=== PATIENT | male | born 1955 | race Hispanic/Latino ===

== ENCOUNTER 2024-02-22 06:42 | Day surgery (SDC) | payer MEDICARE, OTHER ==
[2024-02-18 10:57] VITALS: BP 172/85; PULSE 58; RESP 18
[2024-02-18 11:16] LABS: CREATININE 1.2 mg/dL (0.5-1.3); POTASSIUM 4.4 mmol/L (3.5-5.1)
[2024-02-18 11:36] LABS: BASOPHILS # (AUTO) 0.04 K/uL (0.00-0.20); BASOPHILS % (AUTO) 0.5 % (0.0-5.0); EOSINOPHILS # (AUTO) 0.21 K/uL (0.00-0.70); EOSINOPHILS % (AUTO) 2.5 % (0.0-8.0); HEMATOCRIT 45.9 % (42-54); IMMATURE GRANULOCYTE ABSOLUTE 0.03 K/uL (0-1); LYMPHOCYTES # (AUTO) 2.5 K/uL (1.0-4.8); LYMPHOCYTES % (AUTO) 28.8 % (21.0-51.0); MEAN CORPUSCULAR HEMOGLOBIN 30.8 pg (27.0-33.0); MEAN CORPUSCULAR VOLUME 90.5 fL (79-99); MONOCYTES # (AUTO) 0.7 K/uL (0.1-1.0); MONOCYTES % (AUTO) 7.9 % (3.0-13.0); NEUTROPHILS # (AUTO) 5.1 K/uL (1.8-7.7); NEUTROPHILS % (AUTO) 59.9 % (40.0-77.0); PLATELET COUNT (AUTO) 302 K/uL (130-400); RED BLOOD CELL COUNT(AUTO) 5.07 MIL/uL (4.50-6.20); RED CELL DISTRIBUTION WIDTH 13.3 % (11.0-15.5); WHITE BLOOD COUNT (AUTO) 8.5 K/uL (4.8-10.8)
[2024-02-22] VITALS (17 sets, daily range): BP systolic 127–163; BP diastolic 64–94; PULSE 51–73; RESP 12–18
[~2024-02-22] VITALS: Ht 172.7 cm; Wt 79.1 kg
[2024-02-22] MEDS: LACTATED RINGERS 1000ML 1,000 ML IV ONE (07:26)
[2024-02-22] MEDS: CEFAZOLIN SODIUM 2 GM VIAL ONE (07:26)
[2024-02-22] MEDS ORDERED: LIDOCAINE HCL 1% 20 ML VIAL ONE (07:27)
[2024-02-22] MEDS ORDERED: BUPIVACAINE/PF 0.25% 30ML VIAL IJ ONE (07:27)
[2024-02-22] MEDS ORDERED: HYDROMORPHONE 1 MG INJ ONE (07:37)
[2024-02-22] MEDS ORDERED: FAMOTIDINE 20MG VIAL IV ONE (07:37)
[2024-02-22] MEDS ORDERED: LIDOCAINE PF 100MG/5ML (2%) SYRINGE 5ML ONE (07:40)
[2024-02-22] MEDS ORDERED: NEOSTIGMINE METHYLSULFATE 1MG/ML IV ONE (07:41)
[2024-02-22] MEDS ORDERED: ROCURONIUM BROMIDE 10MG/1ML 5ML VL ONE (07:41)
[2024-02-22] MEDS ORDERED: ONDANSETRON 4MG INJ ONE (07:41)
[2024-02-22] MEDS ORDERED: GLYCOPYRROLATE 0.2 MG/ML 5 ML VIAL ONE (07:41)
[2024-02-22] MEDS ORDERED: PROPOFOL 10 MG/ML 20ML VIAL IV ONE (07:41)
[2024-02-22] MEDS ORDERED: FENTANYL CITRATE PF 50 MCG/1 ML 2ML VIAL ONE (07:41)
[2024-02-22] MEDS ORDERED: PHENYLEPHRINE HCL 10 MG/ML 1ML VIAL IV ONE (07:45)
[2024-02-22] MEDS ORDERED: MIDAZOLAM HCL 1 MG/ML 2ML VIAL ONE (08:02)
[2024-02-22] MEDS: LIDOCAINE HCL 1% 20 ML VIAL MISC ONE (08:10)
[2024-02-22] MEDS ORDERED: DILTIAZEM 25MG INJ IVP ONE (08:46)
[2024-02-22] MEDS ORDERED: LABETALOL 20MG VIAL ONE (08:48)
[2024-02-22] MEDS: MEPERIDINE-PF 25 MG/ML SYG ONE (10:24)
== END 2024-02-22 11:50 | disposition home or self-care (01) ==
LOC: DAH 06:42
PROVIDERS: ATTEND Surgery
DX: K40.20 Bilateral inguinal hernia, without obstruction or gangrene, not specified as recurrent (principal); I44.4 Left anterior fascicular block; F17.200 Nicotine dependence, unspecified, uncomplicated; E78.5 Hyperlipidemia, unspecified; Z82.49 Family history of ischemic heart disease and other diseases of the circulatory system; Z83.3 Family history of diabetes mellitus; Z80.9 Family history of malignant neoplasm, unspecified; Z79.899 Other long term (current) drug therapy
CPT/HCPCS: 93005; 80048; 85025; 36415; 49650; A6260; J0665 ×2; A4663; J7030; A4452; A4344; A4215 ×2; J7120; J3490 ×5; J3010; J1170; J2001; J2250; J2704; J2405; J2710; J2175; J2371; J0690 ×2; C1781 ×2; A4930; A4223; A4222; A4221; A4600